=== PATIENT | female | born 1990 | race Caucasian/White ===

== ENCOUNTER 2017-10-10 12:21 | Emergency (ER) | payer OTHER ==
[~2017-10-10] VITALS: Ht 157.5 cm; Wt 59.0 kg
[2017-10-10] MEDS ORDERED: IBUPROFEN800 MG PO (15:02)
== END 2017-10-10 15:58 | disposition home or self-care (01) ==
LOC: ER 12:21
DX: N93.8 Other specified abnormal uterine and vaginal bleeding (principal); R10.2 Pelvic and perineal pain

== ENCOUNTER → 2018-01-03 | Emergency (ER) | payer OTHER ==
[~2018-01-03] VITALS: Ht 157.5 cm; Wt 67.1 kg
[~2018-01-03] MED LIST: IBUPROFEN800 MG PO; MACROBID 100 M100 MG PO; PYRIDIUM DS200 MG PO
== END | disposition home or self-care (01) ==
LOC: ER 20:30
DX: O23.41 Unspecified infection of urinary tract in pregnancy, first trimester (principal); Z34.01 Encounter for supervision of normal first pregnancy, first trimester

== ENCOUNTER 2018-12-10 05:50 | Day surgery (SDC) | payer OTHER | END 2018-12-10 13:20 | disposition home or self-care (01) | LOC: CIR.AMB 05:50 | DX: Z30.2 Encounter for sterilization (principal); N73.6 Female pelvic peritoneal adhesions (postinfective) ==